=== PATIENT | male | born 1985 | race Caucasian/White ===

== ENCOUNTER 2016-12-16 23:28 | Emergency (ER) | payer OTHER ==
[~2016-12-16] VITALS: Ht 170.2 cm; Wt 74.5 kg
[~2016-12-16 23:28] MED LIST: CELEXA10 MG PO; LORTAB 5/500 501 TAB PO; NO HOME MEDICATIONS
[2016-12-17] MEDS ORDERED: CEPHALEXIN500 M1 PO (01:29)
[2016-12-17 02:06] VITALS: BP 125/55; PULSE 76; TEMP 98.2
== END 2016-12-17 02:09 | disposition home or self-care (01) ==
LOC: COL.ER 23:28
DX: S61.412A Laceration without foreign body of left hand, initial encounter (principal); W26.0XXA Contact with knife, initial encounter; Y92.009 Unspecified place in unspecified non-institutional (private) residence as the place of occurrence of the external cause; W01.0XXA Fall on same level from slipping, tripping and stumbling without subsequent striking against object, initial encounter

== ENCOUNTER 2016-12-27 10:06 | Emergency (ER) | payer OTHER ==
[~2016-12-27 10:06] MED LIST changes: +CEPHALEXIN500 M1 PO
== END 2016-12-27 10:44 | disposition home or self-care (01) ==
LOC: COL.ER 10:06
DX: Z48.02 Encounter for removal of sutures (principal)

== ENCOUNTER 2018-05-15 16:45 | Emergency (ER) | payer OTHER ==
[~2018-05-15] VITALS: Ht 167.6 cm; Wt 71.8 kg
[2018-05-15 16:55] VITALS: TEMP 98.4
[2018-05-15] MEDS ORDERED: ZOFRAN ODT4 MG PO (18:13)
[2018-05-15 18:30] VITALS: BP 128/70; PULSE 80
== END 2018-05-15 18:30 | disposition home or self-care (01) ==
LOC: COL.ER 16:45
DX: S01.81XA Laceration without foreign body of other part of head, initial encounter (principal); F17.210 Nicotine dependence, cigarettes, uncomplicated; W31.9XXA Contact with unspecified machinery, initial encounter